=== PATIENT | male | born 1965 | race Caucasian/White ===

== ENCOUNTER 2017-03-20 05:35 | Outpatient (CLI) | payer BC ==
[~2017-03-20] VITALS: Ht 182.9 cm; Wt 104.7 kg
[~2017-03-20 05:35] MED LIST: CEFD300C3 PO; MTF500T; ONDA8TAB13 PO
[2017-03-20] MEDS ORDERED: GABA-490 PO (15:49)
[2017-03-20] MEDS ORDERED: LISI-552 PO (15:49)
[2017-03-20] MEDS ORDERED: GLYB5TAB6 PO (15:49)
[2017-03-20] MEDS ORDERED: METF1000 PO (15:49)
[2017-03-20] MEDS ORDERED: GABA600T2 PO (15:49)
[2017-03-20] MEDS ORDERED: ZOLP10TA5 PO (15:49)
[2017-03-20] MEDS ORDERED: LOVA40TA2 PO (15:49)
== END 2017-03-20 15:52 ==
LOC: PREOP 05:35
PROVIDERS: ATTEND Surgery
DX: Z01.818 Encounter for other preprocedural examination (principal); Z12.11 Encounter for screening for malignant neoplasm of colon

== ENCOUNTER 2017-03-24 07:30 | Day surgery (SDC) | payer BC ==
[~2017-03-24] VITALS: Ht 182.9 cm; Wt 104.7 kg
[~2017-03-24 07:30] MED LIST changes: +GABA-490 PO; +GABA600T2 PO; +GLYB5TAB6 PO; +LISI-552 PO; +LOVA40TA2 PO; +METF1000 PO; +ZOLP10TA5 PO
[2017-03-24] MEDS ORDERED: NALOXONE 0.4 MG/ML 1 ML (NARCAN) VIAL IVP PRN (07:45)
[2017-03-24] MEDS ORDERED: FLUMAZENIL (ROMAZICON) 0.1 MG/ML 5 ML VIAL INJ PRN (07:45)
[2017-03-24 07:56] VITALS: BP 105/82
[2017-03-24] MEDS ORDERED: NS IV 500 ML 500 ML IV PRN (08:00)
[2017-03-24] MEDS ORDERED: MIDAZOLAM 2 MG/2 ML (VERSED) VIAL ONE ×4 (08:17)
[2017-03-24] MEDS ORDERED: fentaNYL INJECTION 100 MCG/2 ML AMP ONE ×2 (08:17)
[2017-03-24] MEDS: fentaNYL INJECTION 100 MCG/2 ML AMP IVP PRN ×2 (08:37→08:39)
[2017-03-24] MEDS: MIDAZOLAM 2 MG/2 ML (VERSED) VIAL IVP PRN ×3 (08:38→08:54)
--- NOTE | 2017-03-24 09:13 | Conscious Sedation/ASA ---
Conscious Sedation Pre-Proced ASA Class: 2 Airway Mallampati Classification: (curyung appropriate class) I. II. III, IV Lungs Heart ASA score ASA 1: a normal healthy patient ASA 2: a patient with a mild systemic disease (mid diabetes, controlled hypertension, obesity ASA 3: a patient with a severe systemic disease that limits activity (angina , COPD, prior Myocardial infarction) ASA 4: a patient with an incapacitating disease that is a constant threat to life (CHF, renal failure) ASA 5: a moribund patient not expected to survive 24 hrs. (ruptured aneurysm) ASA 6: a declared brain patient whose organs are being harvested. For emergent operations, add the letter E after the classification Grade 2 Sedation Plan: Discussed options with patient/fam Note The patient is an appropriate candidate to undergo the planned procedure, sedation, and anesthesia. The patient immediately re-assessed prior to indication. BLAIR COE MD Mar 24, 2017 9:12 am
--- NOTE | 2017-03-24 09:13 | Endoscopy Procedure Report ---
Endoscopy Report Date: Mar 24, 2017 Preoperative Diagnosis: screening Study Performed: Colonoscopy Procedure Instrument: Colonoscope Endo Procedure/Findings Findings 1.: Diverticulosis Recommendations: Recommendations: 1.: Colonscopy in 10 years Copy Copies To 1: LAMAR CAMPOS MD, XAVIER M MD Mar 24, 2017 9:13 am
--- NOTE | 2017-03-24 09:14 | Discharge Inst-Simple/Standard ---
Discharge Inst-Standard Discharge Medications New, Converted or Re-Newed RX: Other Patient Instructions/Follow Up Plan of Care/Instructions/FU: repeat colonoscopy in 10 years. High fiber diet Activity as Tolerated: Yes Discharge Diet: No Restrictions BLAIR COE MD Mar 24, 2017 9:14 am
[2017-03-24 09:25] VITALS: BP 105/73
[2017-03-24 10:00] VITALS: BP 107/63
--- NOTE | 2017-03-24 14:34 | OPERATIVE REPORT ---
DATE OF SERVICE: 03/24/2017 PROCEDURE: Screening colonoscopy. SURGEON: Dr. Coe. INDICATION FOR PROCEDURE: This gentleman came in for screening colonoscopy. He denied any family history of colon cancer. Informed consent was obtained after reviewing the procedure in detail. DESCRIPTION OF PROCEDURE: He was placed in left lateral decubitus position and his vital signs were monitored. Conscious sedation was achieved using Versed and fentanyl. Digital rectal examination was unremarkable. The colonoscope was then introduced into the rectum and advanced all the way up to the cecum. The scope was then withdrawn slowly and the mucosa examined in a systematic fashion. The quality of bowel preparation was rather suboptimal. FINDINGS: A very few sigmoid diverticula. No polyps were found. He tolerated the procedure well and was taken back to nursing area in a stable condition. IMPRESSION: Screening colonoscopy. No polyps. No family history. Recommend repeating in 10 years. Job ID: [id number] DocumentID: [id number] Dictated Date: 03/24/2017 09:08:58 Desk Monitor Date: 03/24/2017 09:48:23 Dictated By: BLAIR COE MD MTDD
== END 2017-03-24 10:05 | disposition home or self-care (01) ==
LOC: ENDO 07:30
PROVIDERS: ATTEND Surgery
DX: Z12.11 Encounter for screening for malignant neoplasm of colon (principal); K57.32 Diverticulitis of large intestine without perforation or abscess without bleeding

== ENCOUNTER → 2019-07-29 | Outpatient (CLI) | payer BC ==
[~2019-07-29] MED LIST changes: -GABA600T2 PO; +GBPN600T PO; +METF-399 PO; -METF1000 PO
--- NOTE | 2019-07-29 09:04 | Diagnostic Imaging Report ---
INDICATION: Back pain. COMPARISON: None FINDINGS: Frontal and lateral views of the lumbar spine were obtained. Alignment and vertebral heights are maintained. There is no fracture or destructive process. Mild multilevel degenerative disease is noted in the lumbar spine. Limited views of the abdomen demonstrate nonobstructive bowel gas pattern. IMPRESSION: 1. No acute fracture or dislocation of the lumbar spine. 2. Mild multilevel degenerative changes. Dictated by: Dictated on workstation # [id number]
== END ==
LOC: RAD 08:16
PROVIDERS: ATTEND Family Medicine
DX: M47.26 Other spondylosis with radiculopathy, lumbar region (principal)
CPT/HCPCS: 72100

== ENCOUNTER → 2019-08-26 | Outpatient (CLI) | payer BC ==
--- NOTE | 2019-08-26 10:22 | Diagnostic Imaging Report ---
CLINICAL INDICATION: Patient with low back pain and radiculopathy. EXAM: MRI of the lumbar spine performed without IV contrast. Sagittal T2, sagittal T1, sagittal T2 fat-sat, and axial T2. COMPARISON: X-ray of the lumbar spine dated 07/29/2019. FINDINGS: There is no acute lumbar spine fracture. There is small amount of high T2 signal involving the L5 pedicle bilaterally with no fracture seen. This may be related to degenerative changes. There are Modic type II degenerative signal changes involving the lumbar spine spurs anteriorly. There is no significant paraspinal soft tissue abnormality. The visualized portions of the distal thoracic spinal cord, conus medullaris, and cauda equina nerve roots are unremarkable. The conus medullaris tip is seen at the L1-L2 intervertebral level. There are degenerative spurs seen throughout the lumbar spine and facet arthropathy. T11-T12: There is moderate bilateral facet arthropathy. There is moderate right neural foramen narrowing and mild left neural foramen narrowing. T12-L1: There is no significant central spinal canal or neural foramen narrowing. L1-L2: There is no significant posterior disc bulge. There is no significant central spinal canal or neural foramen narrowing. L2-L3: There is mild to moderate bilateral facet arthropathy. There is mild diffuse disc bulge with disc bulges extending into the foraminal regions bilaterally. There is mild bilateral neural foramen narrowing. L3-L4: There is moderate bilateral facet arthropathy. There is mild diffuse disc bulge. There is mild bilateral neural foramen narrowing. There is no significant central canal narrowing. L4-L5: There is severe facet arthropathy/hypertrophy. There is a diffuse disc bulge. There is ligamentum flavum buckling. There is moderate central canal narrowing and moderate to severe bilateral neural foramen narrowing. L5-S1: There is a diffuse disc bulge with moderate loss of intervertebral disc height with small left paracentral disc extrusion/herniation with 12 mm of cephalad disc migration. There is encroachment upon the non-exited left L5 nerve root. There is mild impression upon the thecal sac anteriorly. There is mild to moderate right neural foramen narrowing and moderate to severe left neural foramen narrowing. IMPRESSION: 1: There is L5-S1 diffuse disc bulge with superimposed left paracentral disc extrusion/herniation with cephalad disc migration. There is associated encroachment upon the non-exited left L5 nerve root. There is severe left neural foramen narrowing. 2: There is L4-L5 diffuse disc bulge, severe bilateral facet arthropathy and ligament flavum buckling which causes moderate central canal stenosis and moderate to severe bilateral neural foramen narrowing. 3: The remainder of the lumbar spine degenerative disease is described above. Dictated by: Dictated on workstation # [id number]
== END ==
LOC: RAD 08:29
PROVIDERS: ATTEND Family Medicine
DX: M48.07 Spinal stenosis, lumbosacral region (principal); M47.26 Other spondylosis with radiculopathy, lumbar region; M51.17 Intervertebral disc disorders with radiculopathy, lumbosacral region; M48.05 Spinal stenosis, thoracolumbar region; M46.94 Unspecified inflammatory spondylopathy, thoracic region
CPT/HCPCS: 72148

== ENCOUNTER 2023-04-29 08:40 | Outpatient (RCR) | payer BC ==
[~2023-04-29 08:40] MED LIST changes: +GLBR5T PO; -GLYB5TAB6 PO; -LISI-552 PO; +LISI20TA26 PO
== END 2023-04-30 | disposition home or self-care (01) ==
PROVIDERS: ATTEND Nurse Practitioner
DX: M17.11 Unilateral primary osteoarthritis, right knee (principal)

== ENCOUNTER → 2023-05-30 | Outpatient (RCR) | payer BC | END | disposition home or self-care (01) | PROVIDERS: ATTEND Nurse Practitioner | DX: M17.11 Unilateral primary osteoarthritis, right knee (principal); I10 Essential (primary) hypertension; E11.9 Type 2 diabetes mellitus without complications ==